=== PATIENT | female | born 1935 | race Caucasian/White ===

== ENCOUNTER 2016-10-30 12:40 | Outpatient (CLI) | payer MEDICARE ==
--- NOTE | 2016-10-30 21:59 | ULT ---
BILATERAL CAROTID DUPLEX ULTRASOUND WITH SPECTRAL ANALYSIS AND COLOR-FLOW EVALUATION 10/30/2016 HISTORY: Carotid blockage. FINDINGS: Nielsen scale, color-flow, Doppler evaluation, and spectral analysis of the bilateral carotid arteries is performed with 2D imaging. There is atherosclerotic plaque seen within the distal common carotid arteries and proximal internal carotid arteries, bilaterally. The distal left ICA is tortuous. There is less than 50% maximal stenosis in the bilateral internal carotid arteries according to the peak systolic velocities and the ICA/CCA ratios. Peak systolic velocity in the right ICA is 65.7 cm per second with an ICA/CCA ratio of 0.56. Peak systolic velocity in the left ICA is 91.98 cm per s econd with an ICA/CCA ratio of 0.98. Antegrade flow is demonstrated in the vertebral arteries bilaterally. IMPRESSION: No hemodynamically significant stenosis in the bilateral internal carotid arteries. POS: [facility]
== END 2016-10-30 12:41 | disposition home or self-care (01) ==
LOC: NAV ULT 12:40
PROVIDERS: ATTEND Family Medicine
DX: R09.89 Other specified symptoms and signs involving the circulatory and respiratory systems (principal)
CPT/HCPCS: 93880

== ENCOUNTER 2018-01-30 14:15 | Outpatient (CLI) | payer MEDICARE ==
[2018-01-30 14:48] LABS: Anion Gap 13 mmol/L (10-20); BUN (Urea Nitrogen) 13 mg/dL (9.8-20.1); Calc. Creatinine Clearance 0 mL/min (70-130); Calcium 9.6 mg/dL (7.8-10.44); Carbon Dioxide 25 mmol/L (23-31); Chloride 108 mmol/L (98-107); Estimated GFR-MDRD 68; Glucose 101 mg/dL (83-110); Potassium 4.3 mmol/L (3.5-5.1); Sodium 142 mmol/L (136-145)
[2018-01-30 15:24] LABS: #Basophils 0.1 thou/uL (0.0-0.2); #Eosinphils 0.2 thou/uL (0.0-0.7); #Lymphocytes 1.5 thou/uL (1.20-3.40); #Monocytes 0.9 thou/uL (0.11-0.59); #Neutrophils 5.2 thou/uL (1.40-6.50); %Basophils 0.9 % (0.0-1.0); %Lymphocytes 19.3 % (21.0-51.0); %Monocytes 10.9 % (0.0-10.0); Hemoglobin 11.9 g/dL (12.0-16.0); Mean Corpuscular HGB CONC 29.6 g/dL (32.0-36.0); Mean Corpuscular Hemoglobin 26.1 pg (27.0-31.0); Mean Corpuscular Volume 88.3 fl (81.0-99.0); Mean Platelet Volume 6.8 fL (7.4-10.4); Platelet Count 344 thou/uL (130-400); RBC Distribution Width 13.3 % (11.5-14.5); Red Blood Cell (RBC) Count 4.55 mill/uL (4.20-5.40); White Blood Cell (WBC) Count 7.8 thou/uL (4.8-10.8)
== END 2018-01-30 14:16 | disposition home or self-care (01) ==
LOC: NAV LAB 14:15
PROVIDERS: ATTEND Family Medicine
DX: J06.9 Acute upper respiratory infection, unspecified (principal)
CPT/HCPCS: 36415; 80048; 85025

== ENCOUNTER 2018-03-26 13:45 | Outpatient (CLI) | payer MEDICARE ==
[2018-03-26 14:11] LABS: #Basophils 0.1 thou/uL (0.0-0.2); #Eosinphils 0.3 thou/uL (0.0-0.7); #Lymphocytes 1.2 thou/uL (1.20-3.40); #Monocytes 1.1 thou/uL (0.11-0.59); #Neutrophils 8.4 thou/uL (1.40-6.50); %Basophils 0.8 % (0.0-1.0); %Eosinophils 2.5 % (0.0-10.0); %Lymphocytes 10.8 % (21.0-51.0); %Monocytes 10.2 % (0.0-10.0); %Neutrophils 75.6 % (42.0-75.0); Hemoglobin 11.8 g/dL (12.0-16.0); Mean Corpuscular Hemoglobin 25.7 pg (27.0-31.0); Mean Platelet Volume 6.7 fL (7.4-10.4); Platelet Count 419 thou/uL (130-400); RBC Distribution Width 13.5 % (11.5-14.5); Red Blood Cell (RBC) Count 4.57 mill/uL (4.20-5.40)
== END 2018-03-26 13:46 | disposition home or self-care (01) ==
LOC: NAV LAB 13:45
PROVIDERS: ATTEND Family Medicine
DX: M62.830 Muscle spasm of back (principal); J18.9 Pneumonia, unspecified organism
CPT/HCPCS: 36415; 85025

== ENCOUNTER 2018-03-26 13:54 | Outpatient (CLI) | payer MEDICARE ==
--- NOTE | 2018-03-26 16:08 | RAD ---
TWO VIEWS OF THE CHEST: 03/26/18 COMPARISON: 06/14/10. HISTORY: Right upper lobe pneumonia. FINDINGS: There is focal opacity in the medial right upper lobe/right lung apex with thickening of the adjacent pleura and/or focal pleural fluid. There is no pneumothorax or either side. No large volume pleural effusion. IMPRESSION: Hazy focal increased density in the right lung apex superomedially. This may represent a focus of inf ectious pneumonitis/pneumonia. However, underlying pulmonary mass is a possibility. Short term follow up imaging of the chest following treatment to document resolution is advised. If this abnormality pe rsists despite treatment, a CT examination would be advised to evaluate for an underlying pulmonary m ass lesion. Code T POS: [facility]
== END 2018-03-26 13:55 | disposition home or self-care (01) ==
LOC: NAV RAD 13:54
PROVIDERS: ATTEND Family Medicine
DX: J18.9 Pneumonia, unspecified organism (principal); M62.830 Muscle spasm of back; J98.4 Other disorders of lung
CPT/HCPCS: 71046

== ENCOUNTER 2018-04-05 07:47 | Outpatient (CLI) | payer MEDICARE ==
--- NOTE | 2018-04-05 08:31 | RAD ---
CHEST 2 VIEWS: Date: 04/05/18 HISTORY: Pneumonia. Follow-up. COMPARISON: 03/26/18. FINDINGS: Cardiac silhouette is unremarkable. Pulmonary vasculature remains upper limits of normal. Mediastinum is midline with aortic calcification. Right upper lobe infiltrate has only partially improved. Bibas ilar ill-defined parenchymal opacities are unchanged. No evidence of pneumothorax or large effusions. IMPRESSION: 1. Very slight improvement in right upper lobe infiltrate. Mild patchy bibasilar air space opacity i s stable. Please consider continued radiographic follow-up to evaluate for complete clearing. 2. Atherosclerosis. POS: [facility]
== END 2018-04-05 07:48 | disposition home or self-care (01) ==
LOC: NAV RAD 07:47
PROVIDERS: ATTEND Family Medicine
DX: J18.9 Pneumonia, unspecified organism (principal); R91.8 Other nonspecific abnormal finding of lung field; I70.90 Unspecified atherosclerosis
CPT/HCPCS: 71046

== ENCOUNTER 2018-04-10 11:13 | Outpatient (CLI) | payer MEDICARE ==
--- NOTE | 2018-04-10 12:31 | RAD ---
CERVICAL SPINE THREE VIEWS: HISTORY: Neck pain. Back pain. COMPARISON: 02/09/2015 TECHNIQUE: AP, lateral, and open mouth odontoid views of the cervical spine were obtained on 04/10/2018. FINDINGS: Three views of the cervical spine demonstrate disk space height loss with anterior and posterior oste ophytes at C3-C4, C4-C5, C5-C6, and C6-C7. Findings are stable and unchanged from the previous ubaldo rison radiograph from 02/09/2015. No evidence of acute cervical spine fractures or bony lesions seen. IMPRESSION: Multilevel cervical degenerative changes with changes of spondylosis and osteophytes. No acute abnor malities seen. POS: [facility]
--- NOTE | 2018-04-10 12:40 | RAD ---
THORACIC SPINE THREE VIEWS: HISTORY: Back pain. TECHNIQUE: AP, lateral, and Swimmer's views of the thoracic spine are obtained. FINDINGS: Images demonstrate some osteopenia noted. No evidence of a compression fracture is seen. There is an area of thickening in the right apical region. This may represent a right apical area of scar versus a right apical mass. Correlation with contrast enhanced CT chest may be of use. This a remington of opacity was not present on the patient's previous radiograph of the chest from 06/14/2010. It was seen on the patient's radiograph of the chest from 03/26/2018 and from 04/05/2018. Continue fol low-up radiographs to resolution or consider chest CT to further characterize. POS: [facility]
== END 2018-04-10 11:14 | disposition home or self-care (01) ==
LOC: NAV RAD 11:13
PROVIDERS: ATTEND Family Medicine
DX: M62.830 Muscle spasm of back (principal); M54.6 Pain in thoracic spine; M47.892 Other spondylosis, cervical region; M25.78 Osteophyte, vertebrae
CPT/HCPCS: 72040; 72072

== ENCOUNTER 2018-04-12 08:08 | Outpatient (CLI) | payer MEDICARE ==
--- NOTE | 2018-04-12 09:12 | RAD ---
FRONTAL VIEW CHEST: INDICATION: Back pain. FINDINGS: There is abnormal pleural and parenchymal density of the superior right hemithorax. There is interst itial density of the bilateral perihilar regions. The cardiac silhouette is accentuated by the adrienne ble technique. There is vascular calcification. Referencing 03/26/18 exam, the superior right hemithoracic opacity is grossly stable. IMPRESSION: Persistent pleural and parenchymal density of the superior right chest. This has not significantly c hanged from 03/26/18 radiographs. As necessary, CT thorax, as was previously recommended, may be obta ined for further anatomic delineation. POS: [facility]
== END 2018-04-12 08:09 | disposition home or self-care (01) ==
LOC: NAV RAD 08:08
PROVIDERS: ATTEND Family Medicine
DX: J18.9 Pneumonia, unspecified organism (principal); R91.8 Other nonspecific abnormal finding of lung field; M54.6 Pain in thoracic spine
CPT/HCPCS: 71045